=== PATIENT | male | born 1975 | race American Indian/Alaskan Native ===

== ENCOUNTER 2018-02-03 15:43 | Observation (INO) | payer OTHER ==
[2018-02-03] MEDS ORDERED: Sodium Chloride 0.9% 1,000 ML IV ONE (16:21)
[2018-02-03] MEDS ORDERED: Sodium Chloride 0.9% 250 ML IV ONE (16:35)
[2018-02-03 17:01] LABS: BASO # 0.1 K/uL (0.0-0.2); BASO % 0.6 % (0.0-2.0); EOS # 0.1 K/uL (0.0-0.7); EOS % 0.7 % (0.0-4.0); HEMOGLOBIN 13.8 g/dL (12.0-18.0); LYMPH # 1.6 K/uL (1.0-4.3); LYMPH % 12.5 % (20.0-40.0); MEAN CELL VOLUME 84.9 fL (80.0-94.0); MEAN CORPUSCULAR HEMOGLOBIN 28.8 pg (27.0-31.0); MEAN PLATELET VOLUME 10.5 fL (7.2-11.7); MONO # 1.1 K/uL (0.0-0.8); MONO % 8.7 % (0.0-10.0); NEUT # 10.3 K/uL (1.8-7.0); NEUT % 77.5 % (50.0-75.0); NRBC % 0.1 % (0.0-2.0); RBC 4.79 Mil/uL (4.40-5.90); RED CELL DISTRIBUTION WIDTH 14.3 % (11.5-14.5); WHITE BLOOD COUNT 13.2 K/uL (4.8-10.8)
--- NOTE | 2018-02-03 17:02 | RAD ---
Date of service: 02/03/2018 HISTORY: abd pain COMPARISON: No prior. TECHNIQUE: Chest PA and lateral FINDINGS: LUNGS: No active pulmonary disease. PLEURA: No significant pleural effusion identified. No pneumothorax apparent. CARDIOVASCULAR: Normal. OSSEOUS STRUCTURES: No significant abnormalities. VISUALIZED UPPER ABDOMEN: Normal. OTHER FINDINGS: None. IMPRESSION: No active disease.
[2018-02-03 17:13] LABS: ALB/GLOB RATIO 1.2 (1.0-2.1); ALT/SGPT 27 U/L (21-72); AST/SGOT 23 U/L (17-59); BLOOD UREA NITROGEN 15 mg/dL (9-20); CALCIUM 9.1 mg/dl (8.6-10.4); GFR NON-AFRICAN AMERICAN > 60; LIPASE 41 U/L (23-300)
[2018-02-03 17:39] LABS: URINE BACTERIA RARE (<OCC); URINE BILIRUBIN NEGATIVE (NEGATIVE); URINE BLOOD 3+ (NEGATIVE); URINE CLARITY Hazy (Clear); URINE COLOR Yellow (YELLOW); URINE GLUCOSE (UA) NORMAL (Normal); URINE LEUKOCYTE ESTERASE 3+ Leu/uL (Negative); URINE PROTEIN NEGATIVE (NEGATIVE); URINE UROBILINOGEN NORMAL mg/dL (0.2-1.0); WBC CLUMPS FEW /hpf
--- NOTE | 2018-02-03 17:51 | C.PDOC ---
History Of Present Illness 42 y/o male, with history of testicular torsion, presents to the ER complaining of dysuria, fever and chills. Patient states that he noticed some blood in his urine. Patient denies having nausea, vomiting, abdominal pain, penile di scharge, and known trauma. Time Seen by Provider: 02/03/18 16:14 Chief Complaint (Nursing): Male Genitourinary History Per: Patient History/Exam Limitations: no limitations Onset/Duration Of Symptoms: Days Current Symptoms Are (Timing): Still Present Severity: Moderate Past Medical History Reviewed: Historical Data, Nursing Documentation, Vital Signs Vital Signs: Last Vital Signs Temp 99.1 F 02/05/18 08:00 Pulse 60 02/05/18 08:00 Resp 20 02/05/18 08:00 BP 118/67 02/05/18 08:00 Pulse Ox 98 02/05/18 08:00 - Medical History PMH: No Chronic Diseases Other Surgeries: Hx of surgeries Family History: States: No Known Family Hx - Social History Hx Alcohol Use: Yes Hx Substance Use: No - Immunization History Hx Tetanus Toxoid Vaccination: Yes Hx Influenza Vaccination: No Hx Pneumococcal Vaccination: Yes Review Of Systems Except As Marked, All Systems Reviewed And Found Negative. Constitutional: Positive for: Fever, Chills Gastrointestinal: Negative for: Nausea, Vomiting, Abdominal Pain Genitourinary: Positive for: Dysuria. Negative for: Hematuria, Penile Discharge Physical Exam - Physical Exam Appears: Non-toxic, No Acute Distress Skin: Normal Color, Warm, Dry Head: Atraumatic, Normacephalic Eye(s): bilateral: Normal Inspection Nose: Normal Oral Mucosa: Moist Neck: Supple Chest: Symmetrical Cardiovascular: Rhythm Regular Respiratory: Normal Breath Sounds, No Rales, No Rhonchi, No Wheezing Gastrointestinal/Abdominal: Soft, No Tenderness, No Guarding, No Hernia Back: No CVA Tenderness Male Genital: No Testicular Tenderness, Other (both testes are distended, no lesions) Neurological/Psych: Oriented x3, Normal Speech ED Course And Treatment - Laboratory Results Result Diagrams: 02/05/18 06:23 02/05/18 06:23 O2 Sat by Pulse Oximetry: 97 (RA) Pulse Ox Interpretation: Normal - Radiology CXR: Interpreted by Me, Viewed By Me CXR Interpretation: Yes: No Acute Disease Medical Decision Making Medical Decision Making: Assessment: Dysuria with fever Plan: --Labs --UA --CXR --Toradol IV --IV Fluids --Tylenol PO Disposition - Disposition Disposition: HOSPITALIZED Disposition Time: 18:13 Condition: FAIR - Clinical Impression Clinical Impression: Pyelonephritis - Scribe Statement The provider has reviewed the documentation as recorded by the Scribe Amirah Vo Provider Attestation: All medical record entries made by the Scribe were at my direction and personally dictated by me. I have reviewed the chart and agree that the record accurately reflects my personal performance of the history, physical exam, medical decision making, and the department course for this patient. I have also personally directed, reviewed, and agree with the discharge instructions and disposition.
[2018-02-03] MEDS ORDERED: Iohexol 240 (50 ml) PO ONE (19:07)
[2018-02-03] MEDS ORDERED: Iohexol 240 (50 ml) ONE (19:12)
--- NOTE | 2018-02-03 19:36 | CP.PCM.HP ---
<Kristal Vance - Last Filed: 02/04/18 06:03> History of Present Illness - History of Present Illness History of Present Illness: History and Physical - Hospitalist Service CC: "Fevers/chills and blood in urine" HPI: Patient is a 42 year old male with past medical history of testicular torsion who presents to the hospital for 1 day history of fevers/chills, body aches and dark urine. Patient states that last night he started experiencing subjective fevers, chills, and generalized body aches. Patient states that this morning he noticed pinkish/red urine. This has never happened to him before. He admits to having dysuria and increased urinary frequency. Patient states that he works out in the gym every other day. He does weight lifting and recently increased the amount of weights he has been using. Currently patient still reports having dysuria and hematuria. Also admits to having some nausea today but was able to tolerate breakfast. Denies vomiting. Denies headaches, dizziness, visual changes, changes in hearing, chest pain, palpitations, shortness of breath, abdominal pain, penile discharge, testicular pain, diarrhea, constipation, hx of STDs. 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 Family History: Mother - Hypertension and DM; Father - prostate problems Present on Admission - Present on Admission Any Indicators Present on Admission: No Past Patient History - Past Social History Smoking Status: Never Smoked - GENITOURINARY/GYNECOLOGICAL Other/Comment: Testicular Torsion - PSYCHIATRIC Hx Substance Use: No - SURGICAL HISTORY Hx Surgeries: Yes Other/Comment: left toe - ANESTHESIA Hx Anesthesia: Yes Hx Anesthesia Reactions: No Meds Allergies/Adverse Reactions: Allergies Allergy/AdvReac Type Severity Reaction Status Date / Time No Known Allergies Allergy Verified 02/03/18 16:03 Physical Exam - Constitutional Appears: Non-toxic, No Acute Distress - Head Exam Head Exam: ATRAUMATIC, NORMAL INSPECTION, NORMOCEPHALIC - Eye Exam Eye Exam: EOMI, Normal appearance Pupil Exam: NORMAL ACCOMODATION - ENT Exam ENT Exam: Mucous Membranes Moist - Respiratory Exam Respiratory Exam: Clear to Auscultation Bilateral, NORMAL BREATHING PATTERN. absent: Rales, Rhonchi, Wheezes - Cardiovascular Exam Cardiovascular Exam: REGULAR RHYTHM, +S1, +S2. absent: Systolic Murmur - GI/Abdominal Exam GI & Abdominal Exam: Normal Bowel Sounds, Soft. absent: Guarding, Rebound, Rigid, Tenderness - Exam Additional comments: exam performed by ED attending - No Testicular Tenderness, Other (both testes are distended, no lesions) - Extremities Exam Extremities exam: Positive for: normal inspection, pedal pulses present - Back Exam Back exam: absent: CVA tenderness (L), CVA tenderness (R), rash noted - Neurological Exam Neurological exam: Alert, Oriented x3 - Psychiatric Exam Psychiatric exam: Normal Affect, Normal Mood - Skin Skin Exam: Dry, Normal Color, Warm Results - Vital Signs Recent Vital Signs: Last Vital Signs Temp 102.1 F H 02/03/18 16:15 Pulse 76 02/03/18 15:59 Resp 18 02/03/18 15:59 BP Pulse Ox 97 02/03/18 17:57 - Labs Result Diagrams: 02/03/18 16:58 02/03/18 16:58 Labs: Laboratory Results - last 24 hr 02/03/18 02/03/18 02/03/18 16:58 16:58 17:24 WBC 13.2 H RBC 4.79 Hgb 13.8 Hct 40.7 MCV 84.9 MCH 28.8 MCHC 34.0 RDW 14.3 Plt Count 169 MPV 10.5 Neut % (Auto) 77.5 H Lymph % (Auto) 12.5 L [place] % (Auto) 8.7 Eos % (Auto) 0.7 Baso % (Auto) 0.6 Neut # (Auto) 10.3 H Lymph # (Auto) 1.6 [place] # (Auto) 1.1 H Eos # (Auto) 0.1 Baso # (Auto) 0.1 Sodium 137 Potassium 3.8 Chloride 101 Carbon Dioxide 27 Anion Gap 14 BUN 15 Creatinine 1.0 Est GFR ( Amer) > 60 Est GFR (Non-Af Amer) > 60 Random Glucose 124 H Calcium 9.1 Total Bilirubin 0.5 AST 23 ALT 27 Alkaline Phosphatase 78 Total Protein 7.3 Albumin 4.0 Globulin 3.3 Albumin/Globulin Ratio 1.2 Lipase 41 Urine Color Yellow Urine Clarity Hazy Urine pH 6.0 Ur Specific [place] 1.015 Urine Protein Negative Urine Glucose (UA) Normal Urine Ketones Negative Urine Blood 3+ H Urine Nitrate Negative Urine Bilirubin Negative Urine Urobilinogen Normal Ur Leukocyte Esterase 3+ H Urine WBC (Auto) 123 H Urine RBC (Auto) 80 H Urine WBC Clumps (Auto) Few H Urine Bacteria Rare Assessment & Plan - Assessment and Plan (Free Text) Assessment: A/P: Patient is a 42 year old male with past medical history of testicular torsion who presented to the emergency department for subjective fevers, chills, body aches since last night. Patient also reports having hematuria since this morning. While in the ED, patient spiked a fever of 102.1 and was given Tylenol 975mg PO x 1. Urinary Tract Infection, r/o pyleonephritis -Stable, afebrile -Admit to med/surg for observation -UA showed +3 blood, +3 leukocyte esterase, 123 WBCs, RBC 80 -F/U urine culture, blood cultures procalcitonin, GC/Chlamydia -Continue Ceftriaxone 1gm IVPB daily -Continue IV fluid hydration -Pyridium 100mg TID x 2 days for dysuria, Tylenol 650mg PO q6H prn fever -CT abdomen and pelvis showed no mass or obstruction or calculus involving either kidney. Kidneys appear within normal limits in size and attenuation. Neither ureter appear dilated. Prostate gland appears mildly enlarged. (official read pending) Elevated CK level -CK 454 on admission -Continue IV fluid hydration GI/DVT ppx: -No GI ppx indicated at this time -SCDs Plan discussed with Dr Quyen Vance DO PGY-2 <Golden Napier - Last Filed: 02/04/18 06:30> Results - Vital Signs Recent Vital Signs: Last Vital Signs Temp 97.8 F 02/04/18 01:00 Pulse 68 02/04/18 01:00 Resp 20 02/04/18 01:00 BP 107/63 02/04/18 01:00 Pulse Ox 97 02/04/18 01:00 - Labs Result Diagrams: 02/03/18 16:58 02/03/18 16:58 Labs: Laboratory Results - last 24 hr 02/03/18 02/03/18 02/03/18 16:58 16:58 17:24 WBC 13.2 H RBC 4.79 Hgb 13.8 Hct 40.7 MCV 84.9 MCH 28.8 MCHC 34.0 RDW 14.3 Plt Count 169 MPV 10.5 Neut % (Auto) 77.5 H Lymph % (Auto) 12.5 L [place] % (Auto) 8.7 Eos % (Auto) 0.7 Baso % (Auto) 0.6 Neut # (Auto) 10.3 H Lymph # (Auto) 1.6 [place] # (Auto) 1.1 H Eos # (Auto) 0.1 Baso # (Auto) 0.1 Sodium 137 Potassium 3.8 Chloride 101 Carbon Dioxide 27 Anion Gap 14 BUN 15 Creatinine 1.0 Est GFR ( Amer) > 60 Est GFR (Non-Af Amer) > 60 Random Glucose 124 H Calcium 9.1 Total Bilirubin 0.5 AST 23 ALT 27 Alkaline Phosphatase 78 Total Creatine Kinase Total Protein 7.3 Albumin 4.0 Globulin 3.3 Albumin/Globulin Ratio 1.2 Lipase 41 Urine Color Yellow Urine Clarity Hazy Urine pH 6.0 Ur Specific [place] 1.015 Urine Protein Negative Urine Glucose (UA) Normal Urine Ketones Negative Urine Blood 3+ H Urine Nitrate Negative Urine Bilirubin Negative Urine Urobilinogen Normal Ur Leukocyte Esterase 3+ H Urine WBC (Auto) 123 H Urine RBC (Auto) 80 H Urine WBC Clumps (Auto) Few H Urine Bacteria Rare 02/03/18 20:02 WBC RBC Hgb Hct MCV MCH MCHC RDW Plt Count MPV Neut % (Auto) Lymph % (Auto) [place] % (Auto) Eos % (Auto) Baso % (Auto) Neut # (Auto) Lymph # (Auto) [place] # (Auto) Eos # (Auto) Baso # (Auto) Sodium Potassium Chloride Carbon Dioxide Anion Gap BUN Creatinine Est GFR ( Amer) Est GFR (Non-Af Amer) Random Glucose Calcium Total Bilirubin AST ALT Alkaline Phosphatase Total Creatine Kinase 454 H Total Protein Albumin Globulin Albumin/Globulin Ratio Lipase Urine Color Urine Clarity Urine pH Ur Specific [place] Urine Protein Urine Glucose (UA) Urine Ketones Urine Blood Urine Nitrate Urine Bilirubin Urine Urobilinogen Ur Leukocyte Esterase Urine WBC (Auto) Urine RBC (Auto) Urine WBC Clumps (Auto) Urine Bacteria Assessment & Plan - Date & Time Date: 02/04/18 (I have seen and examined the patient. I agree with the findings and plan of care as documented by Dr. Vance. Patient with UTI. No evidence of pyelo at this time. Rocephin for now. Symptomatic treatment. Also with hematuria and leukocytosis. Continue to monitor CBC/BMP. Monitor for acute changes.) Time: 06:28 Attending/Attestation - Attestation I have personally seen and examined this patient.: Yes I have fully participated in the care of the patient.: Yes I have reviewed all pertinent clinical information: Yes
[2018-02-03] MEDS: Sodium Chloride 0.9% 1,000 ML IV SCH (19:45)
[2018-02-04 01:04] VITALS: RESP 20
[2018-02-04 08:44] LABS: BASO % 0.2 % (0.0-2.0); EOS # 0.1 K/uL (0.0-0.7); EOS % 1.3 % (0.0-4.0); HEMOGLOBIN 13.4 g/dL (12.0-18.0); LYMPH # 1.2 K/uL (1.0-4.3); LYMPH % 13.7 % (20.0-40.0); MEAN CELL VOLUME 85.8 fL (80.0-94.0); MEAN CORPUSCULAR HEMOGLOBIN 28.6 pg (27.0-31.0); MEAN CORPUSCULAR HGB CONC 33.4 g/dL (33.0-37.0); MEAN PLATELET VOLUME 10.6 fL (7.2-11.7); MONO # 0.8 K/uL (0.0-0.8); MONO % 9.1 % (0.0-10.0); NEUT # 6.8 K/uL (1.8-7.0); NEUT % 75.7 % (50.0-75.0); RBC 4.69 Mil/uL (4.40-5.90); RED CELL DISTRIBUTION WIDTH 14.6 % (11.5-14.5)
[2018-02-04 08:53] LABS: ALB/GLOB RATIO 1.1 (1.0-2.1); ALBUMIN 3.4 g/dL (3.5-5.0); ALT/SGPT 29 U/L (21-72); AST/SGOT 18 U/L (17-59); BLOOD UREA NITROGEN 14 mg/dL (9-20); CALCIUM 8.6 mg/dl (8.6-10.4); GFR NON-AFRICAN AMERICAN > 60
--- NOTE | 2018-02-04 10:49 | CT ---
Date of service: 02/03/2018 PROCEDURE: CT Abdomen and Pelvis without intravenous contrast HISTORY: Urinary tract infection COMPARISON: None. TECHNIQUE: Multiple contiguous axial images were performed through the abdomen and pelvis without the use of intravenous contrast. Subsequently, sagittal and coronal reformatted images were obtained. Radiation dose: Total exam DLP = 876 mGy-cm. This CT exam was performed using one or more of the following dose reduction techniques: Automated exposure control, adjustment of the mA and/or kV according to patient size, and/or use of iterative reconstruction technique. FINDINGS: LOWER THORAX: Unremarkable. LIVER: Unremarkable. No gross lesion or ductal dilatation. GALLBLADDER AND BILE DUCTS: Unremarkable. PANCREAS: Unremarkable. No gross lesion or ductal dilatation. SPLEEN: Unremarkable. ADRENALS: Unremarkable. No mass. KIDNEYS AND URETERS: Unremarkable. No hydronephrosis. No solid mass. VASCULATURE: Unremarkable. No aortic aneurysm. BOWEL: Unremarkable. No obstruction. No gross mural thickening. Under distended descending colon. APPENDIX: Unremarkable. Normal appendix. PERITONEUM: Unremarkable. No free fluid. No free air. LYMPH NODES: Unremarkable. No enlarged lymph nodes. BLADDER: Unremarkable. REPRODUCTIVE: Mildly enlarged prostate gland. BONES: Degenerative changes in the spine. Patchy sclerosis of the bilateral SI joints. OTHER FINDINGS: None. IMPRESSION: Mildly enlarged prostate gland. Additional findings as above. These findings were preliminarily reported at 8:24 p.m. on 02/03/[address] Fadi Farmer from [employer].
[2018-02-04] MEDS: Sodium Chloride 0.9% 1,000 ML IV SCH ×2 (13:44→21:37)
--- NOTE | 2018-02-04 22:48 | CP.PCM.PN ---
Subjective - Date & Time of Evaluation Date of Evaluation: 02/04/18 Time of Evaluation: 10:45 - Subjective Subjective: PGY-[address] Howe Patient is seen and examined at bedside. Patient states that pain has improved and is controlled under pain medication. Patient denies blood in urine at this time. Patient is ambulating and tolerating diet at this time. Patient denies fever, chills, chest pain, shortness of breath, nausea, vomiting, diarrhea, constipation, abdominal pain, diarrhea or constipation. Patient denies dysuria. Patient admits to having times where his body feels very hot in the past. Objective - Vital Signs/Intake and Output Vital Signs (last 24 hours): Temp Pulse Resp BP Pulse Ox 98.4 F 66 20 136/76 96 02/04/18 16:00 02/04/18 16:00 02/04/18 16:00 02/04/18 16:00 02/04/18 16:00 - Medications Medications: Current Medications Acetaminophen (Tylenol 325mg Tab) 650 mg PO Q6 PRN PRN Reason: Fever >100.4 F Heparin Sodium (Porcine) (Heparin) 5,000 units SC Q12 [facility] Last Admin: 02/04/18 21:33 Dose: 5,000 units Sodium Chloride (Sodium Chloride 0.9%) 1,000 mls @ 100 mls/hr IV .Q10H [facility] Last Admin: 02/04/18 21:37 Dose: 100 mls/hr Ceftriaxone Sodium 1 gm/ (Sodium Chloride) 100 mls @ 100 mls/hr IVPB DAILY [facility]; Protocol Last Admin: 02/04/18 09:34 Dose: 100 mls/hr Ondansetron HCl (Zofran Inj) 4 mg IVP Q6H PRN PRN Reason: Nausea/Vomiting Phenazopyridine HCl (Pyridium) 100 mg PO TIDPC [facility] Stop: 02/06/18 09:01 Last Admin: 02/04/18 17:38 Dose: 100 mg - Labs Labs: 02/04/18 08:20 02/04/18 08:20 - Constitutional Appears: Well, Non-toxic, No Acute Distress - Head Exam Head Exam: ATRAUMATIC, NORMAL INSPECTION, NORMOCEPHALIC - Eye Exam Eye Exam: EOMI, Normal appearance - ENT Exam ENT Exam: Mucous Membranes Moist, Normal Exam - Neck Exam Neck Exam: Full ROM, Normal Inspection - Respiratory Exam Respiratory Exam: Clear to Ausculation Bilateral, NORMAL BREATHING PATTERN - Cardiovascular Exam Cardiovascular Exam: REGULAR RHYTHM, +S1, +S2 - GI/Abdominal Exam GI & Abdominal Exam: Soft, Normal Bowel Sounds. absent: Distended, Firm, Tenderness, Rebound - Extremities Exam Extremities Exam: Full ROM, Normal Inspection. absent: Tenderness - Back Exam Back Exam: Full ROM, NORMAL INSPECTION. absent: CVA tenderness (L), CVA tenderness (R), tenderness - Neurological Exam Neurological Exam: Alert, Awake, Oriented x3 - Psychiatric Exam Psychiatric exam: Normal Affect, Normal Mood - Skin Skin Exam: Intact, Normal Color, Warm Assessment and Plan - Assessment and Plan (Free Text) Plan: Urinary Tract Infection -CT abdomen and pelvis 02/03 - mildly enlarged prostate. no mass or obstruction or calculus involving either kidney. Kidneys appear within normal limits in size and attenuation. Neither ureter appear dilated. - Stable, T: 98.2 Hr: 73 Bp 130/72 RR: 20, 02 97% -02/04 WBC - 9.0 from 13.2 from previous day. -UA showed +3 blood, +3 leukocyte esterase, 123 WBCs, RBC 80 -urine culture show Gram negative nico -blood cultures - pending -procalcitonin 0.05 - GC/Chlamydia - F/U -Continue Ceftriaxone 1gm IVPB daily, day #1 -Continue IV fluid hydration NS @ 100 mls -continue Pyridium 100mg TID x 2 days for dysuria, Tylenol 650mg PO q6H prn fever - consider urology consult Elevated CK level -CK 454 on admission - CK 02/04 - 318 -downtrending, Continue IV fluid hydration hx Increased body temperature, r/o thryoid disease - f/u TSH and free T4 labs GI/DVT ppx: -No GI ppx indicated at this time -SCDs, Heparin 5,000 SC Q12 - Regular diet Plan discussed with Dr Shyam Campos, PGY-1
[2018-02-05 06:32] LABS: BASO % 0.6 % (0.0-2.0); EOS # 0.2 K/uL (0.0-0.7); EOS % 3.2 % (0.0-4.0); HEMOGLOBIN 13.1 g/dL (12.0-18.0); LYMPH # 1.5 K/uL (1.0-4.3); LYMPH % 23.6 % (20.0-40.0); MEAN CORPUSCULAR HGB CONC 34.1 g/dL (33.0-37.0); MEAN PLATELET VOLUME 10.2 fL (7.2-11.7); MONO # 0.6 K/uL (0.0-0.8); NEUT # 3.9 K/uL (1.8-7.0); NEUT % 62.6 % (50.0-75.0); NRBC % 0.1 % (0.0-2.0); RBC 4.51 Mil/uL (4.40-5.90); RED CELL DISTRIBUTION WIDTH 14.2 % (11.5-14.5); WHITE BLOOD COUNT 6.2 K/uL (4.8-10.8)
[2018-02-05 06:51] LABS: ALB/GLOB RATIO 1.1 (1.0-2.1); ALBUMIN 3.3 g/dL (3.5-5.0); ALT/SGPT 26 U/L (21-72); AST/SGOT 20 U/L (17-59); BLOOD UREA NITROGEN 14 mg/dL (9-20); CALCIUM 8.6 mg/dl (8.6-10.4); GFR NON-AFRICAN AMERICAN > 60
[2018-02-05] MEDS: Sodium Chloride 0.9% 1,000 ML IV SCH ×2 (10:48→12:35)
[2018-02-05 13:40] VITALS: O2SAT 97
[2018-02-05 16:55] VITALS: BP 164/75; PULSE 69; TEMP 99
--- NOTE | 2018-02-05 17:46 | CP.PCM.PN ---
Subjective - Date & Time of Evaluation Date of Evaluation: 02/05/18 Time of Evaluation: 09:45 - Subjective Subjective: Progress Note for Hospitalist Service Pt seen and examined at bedside this am. States that he is having slight burning with urination this am, otherwise pain well controlled with pyridium. Denies fever, chills, chest pain, sob, n/v/d/c, abd pain, or other symptoms. No acute events reported overnight. Objective - Vital Signs/Intake and Output Vital Signs (last 24 hours): Temp Pulse Resp BP Pulse Ox 99 F 69 20 164/75 H 97 02/05/18 16:00 02/05/18 16:00 02/05/18 16:00 02/05/18 16:00 02/05/18 16:00 Intake and Output: 02/05/18 02/05/18 06:59 18:59 Intake Total 700 Balance 700 - Medications Medications: Current Medications Acetaminophen (Tylenol 325mg Tab) 650 mg PO Q6 PRN PRN Reason: Fever >100.4 F Heparin Sodium (Porcine) (Heparin) 5,000 units SC Q12 [facility] Last Admin: 02/05/18 10:43 Dose: 5,000 units Sodium Chloride (Sodium Chloride 0.9%) 1,000 mls @ 100 mls/hr IV .Q10H [facility] Last Admin: 02/05/18 12:35 Dose: Not Given Ceftriaxone Sodium 1 gm/ (Sodium Chloride) 100 mls @ 100 mls/hr IVPB DAILY [facility]; Protocol Last Admin: 02/05/18 10:42 Dose: 100 mls/hr Ondansetron HCl (Zofran Inj) 4 mg IVP Q6H PRN PRN Reason: Nausea/Vomiting Phenazopyridine HCl (Pyridium) 100 mg PO TIDPC [facility] Stop: 02/06/18 09:01 Last Admin: 02/05/18 14:22 Dose: 100 mg - Labs Labs: 02/05/18 06:23 02/05/18 06:23 - Constitutional Appears: Non-toxic, No Acute Distress - Head Exam Head Exam: ATRAUMATIC, NORMOCEPHALIC - Eye Exam Eye Exam: EOMI, Normal appearance, PERRL - ENT Exam ENT Exam: Mucous Membranes Moist - Respiratory Exam Respiratory Exam: Clear to Ausculation Bilateral, NORMAL BREATHING PATTERN. absent: Rales, Rhonchi, Wheezes - Cardiovascular Exam Cardiovascular Exam: REGULAR RHYTHM, +S1, +S2 - GI/Abdominal Exam GI & Abdominal Exam: Soft, Normal Bowel Sounds. absent: Distended, Firm, Guarding, Tenderness, Organomegaly Additional comments: Negative CVA tenderness b/l, neg suprapubic tenderness - Extremities Exam Extremities Exam: Full ROM, Normal Capillary Refill, Normal Inspection - Neurological Exam Neurological Exam: Alert, Awake, CN II-XII Intact, Normal Gait, Oriented x3 - Psychiatric Exam Psychiatric exam: Normal Affect, Normal Mood - Skin Skin Exam: Dry, Intact, Normal Color, Warm Assessment and Plan - Assessment and Plan (Free Text) Assessment: 42M PMhx testicular torsion, currently admitted for treatment of UTI/prostatitis. Urology consulted (Dr. Stewart). Plan: Urinary Tract Infection/Prostatits -CT abdomen and pelvis 02/03 - mildly enlarged prostate. no mass or obstruction or calculus involving either kidney. Kidneys appear within normal limits in size and attenuation. Neither ureter appear dilated. -Vital signs stable this am -No leukocytosis this am -UA showed +3 blood, +3 leukocyte esterase, 123 WBCs, RBC 80 -Urine culture demonstrates E. coli dumont-sensitive -blood cultures - pending -procalcitonin 0.05 - GC/Chlamydia - F/U -Continue Ceftriaxone 1gm IVPB daily, day #2; transfer to [facility] an[facility] once stable for d/c -Continue IV fluid hydration NS @ 100 mls -continue Pyridium 100mg TID x 2 days for dysuria, Tylenol 650mg PO q6H prn fever -Urology consulted (Dr. Stewart), recs appreciated Elevated CK level -CK 454 on admission - CK 02/04 - 318 -downtrending, Continue IV fluid hydration Hx Increased body temperature, r/o thyroid disease - TFTs wnl GI/DVT ppx: -No GI ppx indicated at this time -SCDs, Heparin 5,000 SC Q12 - Regular diet Pt seen, examined with, and plan discussed with Dr. Howe, attending. Chris Castro DO PGY-1, [employer] W[employer] Pager #[phone]
--- NOTE | 2018-02-05 17:54 | CP.PCM.PN ---
Subjective - Date & Time of Evaluation Date of Evaluation: 02/05/18 Time of Evaluation: 17:50 - Subjective Subjective: 48 year old male with clinical prostatitis, urine c&s + pansentive ecoli pt has improved on antibiotics. ROBINSON confirms enlarged prostate. Suggest continue pt on sensitive antibiotics for 10 to 14 days. Urological follow up 1 to 2 weeks after discharge. Pat Objective - Vital Signs/Intake and Output Vital Signs (last 24 hours): Temp Pulse Resp BP Pulse Ox 99 F 69 20 164/75 H 97 02/05/18 16:00 02/05/18 16:00 02/05/18 16:00 02/05/18 16:00 02/05/18 16:00 Intake and Output: 02/05/18 02/05/18 06:59 18:59 Intake Total 700 Balance 700 - Medications Medications: Current Medications Acetaminophen (Tylenol 325mg Tab) 650 mg PO Q6 PRN PRN Reason: Fever >100.4 F Heparin Sodium (Porcine) (Heparin) 5,000 units SC Q12 [facility] Last Admin: 02/05/18 10:43 Dose: 5,000 units Sodium Chloride (Sodium Chloride 0.9%) 1,000 mls @ 100 mls/hr IV .Q10H [facility] Last Admin: 02/05/18 12:35 Dose: Not Given Ceftriaxone Sodium 1 gm/ (Sodium Chloride) 100 mls @ 100 mls/hr IVPB DAILY [facility]; Protocol Last Admin: 02/05/18 10:42 Dose: 100 mls/hr Ondansetron HCl (Zofran Inj) 4 mg IVP Q6H PRN PRN Reason: Nausea/Vomiting Phenazopyridine HCl (Pyridium) 100 mg PO TIDPC [facility] Stop: 02/06/18 09:01 Last Admin: 02/05/18 14:22 Dose: 100 mg - Labs Labs: 02/05/18 06:23 02/05/18 06:23
--- NOTE | 2018-02-06 23:06 | CP.PCM.DIS ---
Provider - Provider Date of Admission: 02/03/18 18:13 Attending physician: Sathya Kimbrough MD Primary care physician: None Consults: Urology - Dr. Stewart Time Spent in preparation of Discharge (in minutes): 45 Diagnosis - Discharge Diagnosis (1) Prostatitis Status: Acute (2) UTI (urinary tract infection), bacterial Status: Acute Hospital Course - Lab Results Lab Results: Micro Results 02/04/18 06:36 Blood Blood Culture - Preliminary NO GROWTH AFTER 48 HOURS 02/04/18 06:36 Blood Blood Culture - Preliminary NO GROWTH AFTER 48 HOURS 02/03/18 17:24 Urine Urine Culture - Final Escherichia Coli Most Recent Lab Values WBC 6.2 K/uL (4.8-10.8) 02/05/18 06:23 RBC 4.51 Mil/uL (4.40-5.90) 02/05/18 06:23 Hgb 13.1 g/dL (12.0-18.0) 02/05/18 06:23 Hct 38.3 % (35.0-51.0) 02/05/18 06:23 MCV 85.0 fL (80.0-94.0) 02/05/18 06:23 MCH 29.0 pg (27.0-31.0) 02/05/18 06:23 MCHC 34.1 g/dL (33.0-37.0) 02/05/18 06:23 RDW 14.2 % (11.5-14.5) 02/05/18 06:23 Plt Count 155 K/uL (130-400) 02/05/18 06:23 MPV 10.2 fL (7.2-11.7) 02/05/18 06:23 Neut % (Auto) 62.6 % (50.0-75.0) 02/05/18 06:23 Lymph % (Auto) 23.6 % (20.0-40.0) 02/05/18 06:23 [place] % (Auto) 10.0 % (0.0-10.0) 02/05/18 06:23 Eos % (Auto) 3.2 % (0.0-4.0) 02/05/18 06:23 Baso % (Auto) 0.6 % (0.0-2.0) 02/05/18 06:23 Neut # (Auto) 3.9 K/uL (1.8-7.0) 02/05/18 06:23 Lymph # (Auto) 1.5 K/uL (1.0-4.3) 02/05/18 06:23 [place] # (Auto) 0.6 K/uL (0.0-0.8) 02/05/18 06:23 Eos # (Auto) 0.2 K/uL (0.0-0.7) 02/05/18 06:23 Baso # (Auto) 0.0 K/uL (0.0-0.2) 02/05/18 06:23 Sodium 142 mmol/L (132-148) 02/05/18 06:23 Potassium 4.2 mmol/L (3.6-5.2) 02/05/18 06:23 Chloride 107 mmol/L (98-107) 02/05/18 06:23 Carbon Dioxide 27 mmol/L (22-30) 02/05/18 06:23 Anion Gap 11 (10-20) 02/05/18 06:23 BUN 14 mg/dL (9-20) 02/05/18 06:23 Creatinine 1.0 mg/dL (0.8-1.5) 02/05/18 06:23 Est GFR ( Amer) > 60 02/05/18 06:23 Est GFR (Non-Af Amer) > 60 02/05/18 06:23 Random Glucose 105 mg/dL (75-110) 02/05/18 06:23 Calcium 8.6 mg/dl (8.6-10.4) 02/05/18 06:23 Total Bilirubin 0.3 mg/dL (0.2-1.3) 02/05/18 06:23 AST 20 U/L (17-59) 02/05/18 06:23 ALT 26 U/L (21-72) 02/05/18 06:23 Alkaline Phosphatase 56 U/L (38-126) 02/05/18 06:23 Total Creatine Kinase 318 U/L (55-170) H 02/04/18 08:20 Total Protein 6.4 g/dL (6.3-8.3) 02/05/18 06:23 Albumin 3.3 g/dL (3.5-5.0) L 02/05/18 06:23 Globulin 3.0 gm/dL (2.2-3.9) 02/05/18 06:23 Albumin/Globulin Ratio 1.1 (1.0-2.1) 02/05/18 06:23 Lipase 41 U/L (23-300) 02/03/18 16:58 Procalcitonin 0.05 NG/ML (0.19-0.49) L 02/04/18 08:20 Free T4 0.85 ng/dL (0.78-2.19) 02/04/18 20:23 TSH 3rd Generation 3.32 mIU/L (0.46-4.68) 02/04/18 20:23 Urine Color Yellow (YELLOW) 02/03/18 17:24 Urine Clarity Hazy (Clear) 02/03/18 17:24 Urine pH 6.0 (5.0-8.0) 02/03/18 17:24 Ur Specific [place] 1.015 (1.003-1.030) 02/03/18 17:24 Urine Protein Negative mg/dL (NEGATIVE) 02/03/18 17:24 Urine Glucose (UA) Normal mg/dL (Normal) 02/03/18 17:24 Urine Ketones Negative mg/dL (NEGATIVE) 02/03/18 17:24 Urine Blood 3+ (NEGATIVE) H 02/03/18 17:24 Urine Nitrate Negative (NEGATIVE) 02/03/18 17:24 Urine Bilirubin Negative (NEGATIVE) 02/03/18 17:24 Urine Urobilinogen Normal mg/dL (0.2-1.0) 02/03/18 17:24 Ur Leukocyte Esterase 3+ [place]/uL (Negative) H 02/03/18 17:24 Urine WBC (Auto) 123 /hpf (0-5) H 02/03/18 17:24 Urine RBC (Auto) 80 /hpf (0-3) H 02/03/18 17:24 Urine WBC Clumps (Auto) Few /hpf (NONE) H 02/03/18 17:24 Urine Bacteria Rare (<OCC) 02/03/18 17:24 - Hospital Course Hospital Course: Medicine Discharge Summary for Hospitalist Service 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 Patient stated that the night prior he started experiencing subjective fevers, chills, and generalized body aches. Patient stated that on am of admission he noticed pinkish/red urine. This had never happened to him before. He admitted to having dysuria and increased urinary frequency. Patient stated that he works out in the gym every other day. He does weight lifting and recently increased the amount of weights he has been using. Currently patient reported having dysuria and hematuria. Also admitted to having some nausea but was able to tolerate breakfast. Denies vomiting. Denied headaches, dizziness, visual changes, changes in hearing, chest pain, palpitations, shortness of breath, abdominal pain, penile discharge, testicular pain, diarrhea, co nstipation, hx of STDs. Ct abd/pelvis on 02/03 demonstrated mildly enlarged prostate, no mass of obstruction or calculus involving either kidney, Pt had leukocytosis on admission that trended down to wnl. U/a showed 3+ blood, 3+ LE, 123 WBCs, and 80 RBCs. Urine cx grew E. coli. Pt was given ceftriaxone inpatient, and discharged home on Cipro PO to complete for 10 days of treatment. Pt was also given pyridium for pain symptoms. Urology was consulted for prostatitis (Dr. Stewart), who recommended Cipro tx and outpatient follow-up. Pt had elevated CK on admission that trended down and pt received IVF hydration. Patient was instructed to follow with Urology and his primary care physician within 1 week of discharge. Discharge Exam - Head Exam Head Exam: ATRAUMATIC, NORMOCEPHALIC - Eye Exam Eye Exam: EOMI, Normal appearance, PERRL - ENT Exam ENT Exam: Mucous Membranes Moist - Respiratory Exam Respiratory Exam: Clear to PA & Lateral, NORMAL BREATHING PATTERN, UNREMARKABLE. absent: Rales, Rhonchi, Wheezes - Cardiovascular Exam Cardiovascular Exam: REGULAR RHYTHM, +S1, +S2. absent: Gallop, Rubs, Systolic Murmur - GI/Abdominal Exam GI & Abdominal Exam: Normal Bowel Sounds, Soft, Unremarkable. absent: Distended, Firm, Guarding, Tenderness Additional comments: Neg CVA tenderness b/l - Extremities Exam Extremities exam: full ROM, normal capillary refill, normal inspection, pedal pulses present - Neurological Exam Neurological exam: Alert, CN II-XII Intact, Normal Gait, Oriented x3, Reflexes Normal - Psychiatric Exam Psychiatric exam: Normal Affect, Normal Mood - Skin Skin Exam: Dry, Intact, Warm Discharge Plan - Discharge Medications Prescriptions: Ciprofloxacin [Cipro] 500 mg PO Q12 #14 tab - Follow Up Plan Condition: FAIR Disposition: HOME/ ROUTINE Instructions: Ciprofloxacin (Systemic), Urinary Tract Infection in Women (DC), Urinary Tract Infection in Men (DC), Dysuria (GEN) Additional Instructions: Patient is cleared for discharge home, please complete course of antibiotics and follow up with urology outpatient for further work up. Follow up with primary medical doctor in 1 week. Referrals: Eduardo Howe MD [Staff Provider] - Sergio Stewart Jr., MD [Staff Provider] -
== END 2018-02-05 20:25 | disposition home or self-care (01) ==
LOC: C.ER 15:43 → C.9E 18:13 → C.3T 22:46
PROVIDERS: ADMIT Internal Medicine; ATTEND Internal Medicine
DX: N39.0 Urinary tract infection, site not specified (principal); N41.9 Inflammatory disease of prostate, unspecified
CPT/HCPCS: 36415; 71046; 74176; 80053; 81001; 82550; 83690; 84145; 84439; 84443; 85025; 86710; 87040; 87086; 87181; 87491; 87591; 96360; 96365; 96374; 99285; G0378; J0696; J1644; J1885; J2405; J7030

== ENCOUNTER → 2018-07-24 | Outpatient (CLI) | payer OTHER | LOC: C.LAB 10:27 ==